=== PATIENT | female | born 1945 | race Caucasian/White ===

== ENCOUNTER → 2023-06-04 12:53 | Outpatient (REF) | payer MEDICARE, BC, SELFPAY | LOC: DHCBC HW 12:53 | PROVIDERS: ATTENDING PHYSICIAN Internal Medicine Cardiovascular Disease; FAMILY PHYSICIAN Internal Medicine | DX: I35.0 Nonrheumatic aortic (valve) stenosis (principal); R06.09 Other forms of dyspnea; R07.89 Other chest pain | CPT/HCPCS: 93306 ==

== ENCOUNTER → 2023-06-20 07:41 | Outpatient (REF) | payer MEDICARE, BC, SELFPAY | LOC: DHCBC/DCA 07:41 | PROVIDERS: ATTENDING PHYSICIAN Internal Medicine Cardiovascular Disease; FAMILY PHYSICIAN Internal Medicine | DX: I35.0 Nonrheumatic aortic (valve) stenosis (principal); R06.09 Other forms of dyspnea; R07.89 Other chest pain | CPT/HCPCS: 78452; 93017; A9500; J2785 ==

== ENCOUNTER → 2023-07-01 14:48 | Outpatient (REF) | payer MEDICARE, BC, SELFPAY | LOC: HWRAD 14:48 | PROVIDERS: ATTENDING PHYSICIAN Internal Medicine | DX: M81.0 Age-related osteoporosis without current pathological fracture (principal) | CPT/HCPCS: 77080 ==

== ENCOUNTER → 2024-02-05 08:07 | Outpatient (REF) | payer MEDICARE, BC, SELFPAY | LOC: HWRAD 08:07 | PROVIDERS: ATTENDING PHYSICIAN Internal Medicine | DX: R10.9 Unspecified abdominal pain (principal) | CPT/HCPCS: 76700 ==

== ENCOUNTER → 2024-05-20 10:06 | Outpatient (REF) | payer MEDICARE, BC, SELFPAY | LOC: HWRAD 10:06 | PROVIDERS: ATTENDING PHYSICIAN Otolaryngology; FAMILY PHYSICIAN Internal Medicine | DX: J32.0 Chronic maxillary sinusitis (principal) | CPT/HCPCS: 70486 ==

== ENCOUNTER 2024-09-10 06:29 | Day surgery (SDC) | payer MEDICARE, BC, SELFPAY ==
[2024-09-10 09:02] LABS: Glucose - Point of Care 157 mg/dl (70-99)
== END 2024-09-10 09:25 | disposition home or self-care (01) ==
LOC: GI 06:29
PROVIDERS: ATTENDING PHYSICIAN Internal Medicine Gastroenterology
DX: K21.9 Gastro-esophageal reflux disease without esophagitis (principal); Z53.8 Procedure and treatment not carried out for other reasons; K22.0 Achalasia of cardia; R13.10 Dysphagia, unspecified; K31.84 Gastroparesis; K43.9 Ventral hernia without obstruction or gangrene
CPT/HCPCS: 43235; 82962

== ENCOUNTER 2024-09-11 08:02 | Emergency (ER) | payer MEDICARE, BC, SELFPAY ==
[2024-09-11 08:04] VITALS: BP 150/85
--- NOTE | 2024-09-11 10:01 | ED.MUSCINJ ---
HPI-Injury
General
Chief Complaint: Musculo-Skeletal Complaint
Source: patient
Exam Limitations: none
Time Seen by Provider: 09/11/24 09:38
Nursing documentation reviewed up to this point in time: agreed with
History of Present Illness-Injury
Is this injury a work related problem?: No
Is pt an associate of [facility]/[place]?: No
Initial Injury comments:
79-year-old female right shoulder and right upper arm pain after slipping moving some files directly landed on her arm and shoulder she has had surgery on that side from Dr. Peguero no blood thinners no chest pain or shortness of breath no neck pain
has an abrasion on her right elbow
Past History
Past History
ED Past Medical History: Cancer (skin), GERD, HTN, Hypercholesterolemia, NIDDM, Other (Aspiration pna, dysphagia, GIB) and Other (Internal hemorrhoids)
ED Past Surgical History: Orthopedic and Other (Noncontributory)
Social History
Tobacco: Former smoker
Alcohol: None
Drug: None
Personal: Single
Living: alone
Employment: Employed
Family History
Family History: Other
Review of Systems
Review of Systems
All Other Systems: Not applicable
EENT: Reports no symptoms
Respiratory: Reports no symptoms
Cardiac: Reports no symptoms
ABD/GI: Reports no symptoms
Musculoskeletal: Reports muscle pain and muscle stiffness
Neurological: Reports no symptoms
Endocrine: Reports no symptoms
Phy Exam
Physical Exam
Physical Exam:
Physical Exam
General: no apparent distress, not acutely ill
Neck: No jaundice no tongue bite no posterior neck pain
Heart: Regular
Lungs: no acute respiratory distress. clear bilaterally
Neuro: alert and oriented. no focal neurological deficits
Skin: no rash
Psychiatric: well kept. interactive and cooperative
Extremities: Right upper extremity minimal tenderness over the proximal third of the humerus minimal pain with passive and active range of motion of the shoulder strong radial pulse small abrasion over the right elbow
Injury Course
Orders/Labs/Results
Orders:
Orders
09/11/24 08:07
CR Humerus - Right Min 2 View* Urgent
Reason For Exam: pain injury
09/11/24 09:57
Wound Dressing- Treatment ONCE
Location of Wound: elbow
Ibuprofen [Motrin] 400 mg PO NOW STA
MDM/Problems Addressed
Differential Diagnosis Includes:
Fracture contusion strain ligamentous injury dislocation
MDM/Problems Addressed:
Upper extremity injury
Chronic conditions affecting care:
Prior surgery to the upper EXTR
Acute Exacerbation and/or Progression of Chronic Illness:
Prior surgery to the upper EXTR
*Radiology
Radiology exam reviewed: preliminary read by ED provider
*Pulse Oximetry
Patient hypoxic: no (99)
*Critical Care Note
Total Time (30-74mins, 75-104mins- exclusive of procedures): Not Applicable
Update Note
Update Note:
X-ray noted no obvious fracture formal report pended will place in sling antibiotic ointment follow-up with her prior orthopedist
ED Attending Note
-
Portions of this chart may have been created with voice recognition software.� Occasional wrong word or��sound alike� substitutions may have occurred due to the inherent limitations of voice recognition software.
Discharge Plan
Departure
Patient Disposition: Home (Routine Discharge)
Date of Disposition: 09/11/24
Time of Disposition: 10:03
Patient with high blood pressure during this ER visit?: No
Condition: Good
Discharge Problem:
Contusion of right shoulder or upper extremity
Instructions: How to Use a Shoulder Sling, Muscle and Bone Pain (DC)
Prescriptions:
No Action
esomeprazole magnesium [Nexium] 40 MG capsule,delayed release(DR/EC)
40 mg PO DAILY
Align
1 dose PO DAILY
fluticasone propion-salmeterol [Advair Diskus] 1 EACH blister with device
1 ea IH DAILY
amlodipine 2.5 MG tablet
2.5 mg PO DAILY
fexofenadine 180 MG tablet
180 mg PO DAILY
ezetimibe 10 MG tablet
10 mg PO DAILY
rosuvastatin 5 MG tablet
5 mg PO MOWEFR
coenzyme Q10 200 MG capsule
100 mg PO DAILY
multivitamin Tablet
1 tab PO DAILY
Januvia 100 mg Tablet
100 mg PO DAILY
calcium carbonate-vitamin D3 [Calcium 600 + D(3)] 600 mg-10 mcg (400 unit) Tablet
1 tab PO DAILY
psyllium husk [Metamucil] 0.4 gram Capsule
0.4 g PO DAILY
Clobetasol Ointment .05%
1 dose vaginal BID
Metamucil
1 cap PO DAILY
Triamcinolone Cream
1 dose topical PRN PRN (Reason: rash)
fluocinonide
1 drp EACH EAR PRN PRN (Reason: allergies)
mupirocin 2 % ointment
1 applic topical BID Qty: 1 0RF
aspirin 325 mg Tablet
325 mg PO DAILY Qty: 1 0RF
Rx Instructions:
take with food
docusate sodium 100 mg Capsule
100 mg PO BID Qty: 1 0RF
sennosides [senna] 8.6 mg Tablet
17.2 mg PO BID Qty: 2 0RF
meloxicam 15 mg tablet
15 mg PO DAILY Qty: 14 0RF
Rx Instructions:
take with food
tramadol 50 mg tablet
50 - 100 mg PO Q6H PRN (Reason: 1 tab moderate, 2 tabs if pain severe) Qty: 30 0RF
Rx Instructions:
Dx Orthopedic surgery
Ongoing therapy
losartan 50 MG tablet
100 mg PO DAILY Qty: 1 0RF
hydrochlorothiazide 25 MG tablet
25 mg PO DAILY Qty: 1 0RF
tizanidine [Zanaflex] 2 mg capsule
2 mg PO BID Qty: 21 0RF
Rx Instructions:
take one tab daily and 2 tabs b/f bed
acetaminophen [Tylenol Extra Strength] 500 mg tablet
1,000 mg PO QID Qty: 2 0RF
Rx Instructions:
scheduled dosing/standing order
Referrals:
Dru Robins MD [Family Provider, Internal Medicine]
Daniel Peguero MD [Active, Orthopedics] - Follow up in 5-7 days
Activity Restrictions/Additional Instructions:
Tylenol or ibuprofen for pain
Use sling for a few days
Exercise your arm when not in the sling
Follow-up with Dr. Peguero
Interventions
Interventions:
*Risk Screen - Suicide Last Done: 09/11/24 08:04
*General Assessment Last Done: 09/11/24 08:52
*Neglect/Abuse Screening Last Done: 09/11/24 08:04
*ED COVID-19 Vaccine History Last Done: 09/11/24 08:52
ED-Musculoskeletal Assessment Last Done: 09/11/24 08:52
Discharge Date and Time
Print Language: NIUEAN
[2024-09-11] MEDS: MOTRIN 400 MG PO (10:10)
== END 2024-09-11 10:23 | disposition home or self-care (01) ==
LOC: EMR 08:02
PROVIDERS: EMERGENCY PHYSICIAN Emergency Medicine; FAMILY PHYSICIAN Internal Medicine
DX: S40.011A Contusion of right shoulder, initial encounter (principal); S50.311A Abrasion of right elbow, initial encounter; M79.18 Myalgia, other site; W01.0XXA Fall on same level from slipping, tripping and stumbling without subsequent striking against object, initial encounter; I10 Essential (primary) hypertension; E78.00 Pure hypercholesterolemia, unspecified; K21.9 Gastro-esophageal reflux disease without esophagitis; E11.40 Type 2 diabetes mellitus with diabetic neuropathy, unspecified; K57.90 Diverticulosis of intestine, part unspecified, without perforation or abscess without bleeding; K52.9 Noninfective gastroenteritis and colitis, unspecified; M19.90 Unspecified osteoarthritis, unspecified site; I35.0 Nonrheumatic aortic (valve) stenosis; J45.909 Unspecified asthma, uncomplicated; Z85.828 Personal history of other malignant neoplasm of skin; Z87.891 Personal history of nicotine dependence; Z96.651 Presence of right artificial knee joint; Z87.01 Personal history of pneumonia (recurrent)
CPT/HCPCS: 99283; 73060

== ENCOUNTER 2024-10-29 06:11 | Day surgery (SDC) | payer MEDICARE, BC, SELFPAY ==
[2024-10-29] VITALS (7 sets, daily range): BP systolic 144–164; BP diastolic 60–81; BMI 34.6
[2024-10-29 14:57] LABS: Glucose - Point of Care 128 mg/dl (70-99)
[2024-10-29 15:53] LABS: Glucose - Point of Care 124 mg/dl (70-99)
== END 2024-10-29 17:10 | disposition home or self-care (01) ==
LOC: SDS 06:11
PROVIDERS: ATTENDING PHYSICIAN Internal Medicine Gastroenterology
DX: K22.89 Other specified disease of esophagus (principal); T18.128A Food in esophagus causing other injury, initial encounter; W44.F3XA Food entering into or through a natural orifice, initial encounter; K31.A19 Gastric intestinal metaplasia without dysplasia, unspecified site; K31.89 Other diseases of stomach and duodenum; R12 Heartburn; Z87.19 Personal history of other diseases of the digestive system; Z98.890 Other specified postprocedural states
CPT/HCPCS: 43249; 43239; 82962; 88305; 88342; C1726